=== PATIENT | male | born 1940 | race Caucasian/White ===

== ENCOUNTER 2018-05-30 08:31 | Emergency (ER) | payer OTHER, MEDICARE ==
[2018-05-30 09:21] LABS: ABSOLUTE LYMPHOCYTES (AUTO) 0.7 10^3/uL (0.5-4.7); ABSOLUTE MONOCYTES (AUTO) 0.7 10^3/uL (0.1-1.4); BASOPHILS % (AUTO) 0.3 % (0-2); EOSINOPHILS % (AUTO) 0.2 % (0-6); HEMATOCRIT 49.2 % (37.9-51.0); HEMOGLOBIN 16.7 g/dL (13.5-17.0); LYMPHOCYTES % (AUTO) 5.4 % (13-45); MEAN CORPUSCULAR HEMOGLOBIN 30.4 pg (27.0-33.4); MEAN CORPUSCULAR HGB CONC 33.9 g/dL (32.0-36.0); MEAN CORPUSCULAR VOLUME 90 fl (80-97); MONOCYTES % (AUTO) 5.4 % (3-13); PLATELET COUNT 158 10^3/uL (150-450); RED BLOOD COUNT 5.49 10^6/uL (4.35-5.55); RED CELL DISTRIBUTION WIDTH 14.3 % (11.5-14.0); SEGMENTED NEUTROPHILS % (AUTO) 88.7 % (42-78); TOTAL CELLS COUNTED % (AUTO) 100 %; WHITE BLOOD COUNT 12.4 10^3/uL (4.0-10.5)
--- NOTE | 2018-05-30 09:21 | ER Document Report ---
ED GI/ - General Chief Complaint: Flank Pain Stated Complaint: BACK PAIN Time Seen by Provider: 05/30/18 09:07 Mode of Arrival: Ambulatory Information source: Patient, Relative, COUNTS INCLUDE 234 BEDS AT THE [facility] Records Notes: This 77-year-old male patient comes emergency room complaining of right flank pain and right abdominal pain that started on Monday afternoon 05/27/2018. Reports this morning after drinking some coffee and suddenly got much worse. He has been constipated without having a bowel movement in the past 5 days. He finally took something to help move his bowels last night but he does not know what it was that he took. It was a clear liquid in a white bottle. He also has been taking Goody's powders for the discomfort and then decided that was too risky due to his GI bleeding history so he switched to Tylenol yesterday. There is no fever. Patient reports that when the pain got severe this morning after drinking coffee, he developed nausea that has persisted. He did gag some at home, and t hen vomited in route to the hospital. He reports that he did start taking his iron tablets again recently. A few days ago when he woke up and had a very small amount of hard stool, he stopped taking the iron, but did not start taking any sort of laxatives. In reviewing the patient's medications, I found that he no longer takes high blood pressure medication because it caused his blood pressure to be too low. He had been on metoprolol 2 pills that was reduced to 1 pill, then reduce to 1/2 pill, then totally eliminated. He also does not take medicine for elevated cholesterol and I am not sure why that is. His past history is significant for three-vessel bypass about 10 years ago. TRAVEL OUTSIDE OF THE [place] IN LAST 30 DAYS: No - Related Data Allergies/Adverse Reactions: niacin Allergy (Verified 05/30/18 08:33) Past Medical History - General Information source: Patient, Relative, COUNTS INCLUDE 234 BEDS AT THE [facility] Records - Social History Smoking Status: Former Smoker Cigarette use (# per day): No Chew tobacco use (# tins/day): No Smoking Education Provided: No Frequency of alcohol use: None Drug Abuse: None Occupation: Retired Lives with: Spouse/Significant other Family History: Reviewed & Not Pertinent Patient has suicidal ideation: No Patient has homicidal ideation: No - Past Medical History Cardiac Medical History: Reports: Hx Atrial Fibrillation - Paroxysmal, Hx Hypercholesterolemia, Hx Hypertension Pulmonary Medical History: Reports: Hx COPD Renal/ Medical History: Reports: Hx Kidney Stones Past Surgical History: Reports: Hx Coronary Artery Bypass Graft, Other - Kidney stone removal Review of Systems - Review of Systems Constitutional: No symptoms reported EENT: No symptoms reported Cardiovascular: No symptoms reported Respiratory: No symptoms reported Gastrointestinal: See HPI, Abdomen distended, Abdominal pain, Nausea, Vomiting, Constipation Genitourinary: No symptoms reported Musculoskeletal: No symptoms reported Skin: No symptoms reported Hematologic/Lymphatic: No symptoms reported Neurological/Psychological: No symptoms reported Physical Exam - Vital signs Vitals: Temp Pulse Resp BP Pulse Ox 97.4 F 96 26 H 192/119 H 95 05/30/18 08:46 05/30/18 08:46 05/30/18 08:46 05/30/18 08:46 05/30/18 08:46 Interpretation: Hypertensive - General General appearance: Appears well, Alert In distress: None - HEENT Head: Normocephalic, Atraumatic Eyes: Normal Pupils: PERRL - Respiratory Respiratory status: No respiratory distress Breath sounds: Other - Distant breath sounds consistent with history of COPD without rhonchi or wheezes. - Cardiovascular Rhythm: Irregularly irregular Heart sounds: Normal auscultation Murmur: No - Abdominal Distension: Distended, Tympanitic, Other - Tympanitic across the upper abdomen, fluid type sounds on percussion in the lower abdomen Bowel sounds: Hypoactive Tenderness: Tender - There is some tenderness in the right lateral lower abdomen and more so in the right upper quadrant. - Back Back: Normal. No: CVA tenderness - Extremities General upper extremity: Normal inspection General lower extremity: Normal inspection - Neurological Neuro grossly intact: Yes - Psychological Associated symptoms: Normal affect, Normal mood - Skin Skin Temperature: Warm Skin Moisture: Dry Skin Color: Normal Course - Re-evaluation Re-evalutation: 05/30/18 16:10 This is a late note about this patient - Vital Signs Vital signs: Temp Pulse Resp BP Pulse Ox 97.4 F 74 16 162/107 H 99 05/30/18 08:46 05/30/18 13:51 05/30/18 13:51 05/30/18 13:51 05/30/18 13:51 - Laboratory Result Diagrams: 05/30/18 09:02 05/30/18 09:02 Laboratory results interpreted by me: 04/03/19 04/03/19 04/03/19 09:02 09:02 10:25 WBC 12.4 H RDW 14.3 H Seg Neutrophils % 88.7 H Lymphocytes % 5.4 L Absolute Neutrophils 11.0 H Chloride 108 H BUN 24 H Creatinine 2.67 H Est GFR ( Amer) 28 L Est GFR (Non-Af Amer) 23 L Glucose 113 H ALT 16 L Urine Protein 30 H Urine Blood LARGE H - Diagnostic Test Radiology reviewed: Image reviewed, Reports reviewed - Acute abdominal series shows a sending colon constipation with no other gross abnormality. Contrasted CT scan of the abdomen and pelvis shows moderate fecal load in the ascending colon with nonobstructing punctate renal stones in each kidney. - EKG Interpretation by Me EKG shows normal: Sinus rhythm, [place]. abnormal: Intervals - [place] prolonged QT interval, QRS Complexes - Borderline inferior Q waves, ST-T Waves - Borderline inferior T abnormalities Rate: Tachycardia - 101 Rhythm: Arrthymia Discharge - Discharge Clinical Impression: Abdominal pain Qualifiers: Abdominal location: unspecified location Qualified Code(s): R10.9 - Unspecified abdominal pain Constipation Qualifiers: Constipation type: unspecified constipation type Qualified Code(s): K59.00 - Constipation, unspecified High blood pressure Qualifiers: Hypertension type: essential hypertension Qualified Code(s): I10 - Essential (primary) hypertension Condition: Stable Disposition: HOME, SELF-CARE Additional Instructions: Abdominal Pain: There are many causes of abdominal pain. Pain can mean a serious problem requiring surgery (such as appendicitis). It can also be an innocent problem that goes away on its own (such as a viral infection). Often, time must pass to determine the cause of pain. The physician does not feel that hospitalization is necessary, at present. Things may change within the next 24 hours. Call the doctor or come back for re- examination if any problems occur, such as: (1) Pain that becomes more severe, steady, or becomes concentrated in one s pecific area. Also, pain that is more severe with movement or coughing. (2) Vomiting that persists or becomes more frequent. (3) Blood in the vomitus, urine, or bowel movements. Blood in the stool may have a tarry or black appearance. (4) Shaking chills or fever greater than 100 degrees F. (5) The abdomen becomes more distended or swollen. (6) Bowel movements cease. (7) Failure to improve as expected. Constipation: Constipation is a common problem. It is especially likely as you get older. Constipation is a common cause of abdominal pain, but sometimes causes no symptoms at all. Causes of constipation include certain medications, dehydration, diets, inactivity, and low-fiber intake. Rarely, it can be a symptom of underlying disease. The physician has evaluated you for this. Avoid constipation by eating a diet high in fiber, fruits, and vegetables. Drink plenty of liquids. Get regular exercise. If possible, avoid constipating medicines like narcotic pain medication. Some vitamin tablets can cause constipation. Stool softeners may be needed for difficult cases. An excellent stool softener is Konsyl which is available at [employer]. Just add a teaspoon to a glass of pineapple or orange juice daily or twice a day if needed. Laxatives are useful for occasional constipation. You should use them only when necessary. Too-frequent use can make your bowels dependent on them. Some over the counter laxatives available without prescription are: Milk of Magnesia, 1-2 tablespoons twice a day Dulcolax, 5 mg pill or 10 mg suppository. Citrate of Magnesia, 4-5 ounces a day for a day or two For acute constipation, Fleet's Enemas and Dulcolax suppositories are helpful. Chronic, terminal superintendent use of laxatives or enemas is not a good idea. Your bowel may become dependant on them. You do not need to have a bowel movement every day. Many people do fine with a bowel movement every three or four days. You should call your doctor or return for re-evaluation if you pass blood in the stool, or if you develop fever or increasing abdominal pain. High Blood Pressure: When your blood pressure was taken today it was elevated. Today's reading was 156/119. Pre-hypertension/Hypertension: The patient has been informed that they may have pre-hypertension or Hypertension based on a blood pressure reading in the emergency department. I recommend that the patient call the primary care provider listed on their discharge instructions or a physician of their choice this wee to arrange follow up for further evaluation of possible pre- hypertension or Hypertension. Sometimes, stress or illness causes a temporary elevation of your blood pressure. We suggest that you get your blood pressure measured three more times during the next few days to see if this is more than a temporary abnormality. If your blood pressure is greater than 150/90 on each occasion, you must have treatment. Some simple things you can do to help are: If you have blood pressure medicine but aren't using it regularly, start taking it again. Get some aerobic exercise for at least 20 minutes on a daily basis. (See your doctor before beginning a new exercise program.) Eat a low-fat diet. Lose excess weight. Avoid salty foods and avoid adding salt to any of the foods you eat. Avoid diet pills, decongestants, "energizing" herbs, and other medicines that elevate blood pressure. If left untreated, hypertension greatly enhances your risk for developing heart disease and strokes. Please don't ignore this problem. Take MiraLAX every day. Drink plenty of fluids in the evening. Drink some citrate of magnesia twice daily until your bowels start to move. Take Tylenol for pain if needed. Narcotic pain medication will worsen your constipation. Check your blood pressure twice daily and record the findings over the next few days. All up with your doctor if your bowels do not start moving over the next few days, or if your blood pressure does not come back down to normal. RETURN TO THE EMERGENCY ROOM IF ANY NEW OR WORSENING SYMPTOMS.
[2018-05-30 09:42] LABS: BLOOD UREA NITROGEN 24 mg/dL (7-20); CALCIUM 10.1 mg/dL (8.4-10.2); GLUCOSE 113 mg/dL (75-110)
[2018-05-30 09:43] LABS: ALANINE AMINOTRANSFERASE 16 U/L (21-72); ALBUMIN 4.6 g/dL (3.5-5.0); ALKALINE PHOSPHATASE 81 U/L (38-126); ANION GAP 9 (5-19); ASPARTATE AMINO TRANSFERASE 19 U/L (17-59); BILIRUBIN,DIRECT 0.4 mg/dL (0.0-0.4); BILIRUBIN,TOTAL 1.1 mg/dL (0.2-1.3); CARBON DIOXIDE 24 mmol/L (22-30); CHLORIDE 108 mmol/L (98-107); POTASSIUM 4.1 mmol/L (3.6-5.0); SODIUM 140.7 mmol/L (137-145); TOTAL PROTEIN 7.9 g/dL (6.3-8.2)
[2018-05-30] MEDS ORDERED: NORMAL SALINE 1000 ML 1,000 ML IV ONE (10:08)
--- NOTE | 2018-05-30 10:15 | RADIOLOGY REPORT (SQ) ---
EXAM DESCRIPTION: ACUTE ABDOMEN SERIES COMPLETED DATE/TIME: 05/30/2018 9:39 am REASON FOR STUDY: RLQ/RUQ pain. Constipation X 4 days COMPARISON: None. NUMBER OF VIEWS: Three views. TECHNIQUE: Frontal chest, supine abdomen and upright/decubitus abdomen radiographic images acquired. LIMITATIONS: None. FINDINGS: CHEST: No evidence of focal consolidation, pleural effusion or pneumothorax. Evidence of prior CABG. FREE AIR: None. No abnormal gas collections. BOWEL GAS PATTERN: Gas and stool throughout the colon. No evidence of intestinal obstruction. CALCIFICATIONS: No radiopaque calculi overlie kidneys or expected course of ureters. Scattered pelvi c phleboliths. Vascular calcifications pre HARDWARE: CABG hardware. None in the abdomen. SOFT TISSUES: No gross mass or suggestion of organomegaly. BONES: No acute fracture. No worrisome bone lesions. OTHER: No other significant finding. IMPRESSION: No evidence of acute intrathoracic process. No evidence of intestinal obstruction. Formed stool throughout the ascending colon. TECHNICAL DOCUMENTATION: JOB ID: [id number] [employer]- All Rights Reserved Reading location - IP/workstation name: [email or web address]
[2018-05-30] MEDS ORDERED: ONDANSETRON HCL INJ/PF 4 MG/2 ML SDV IV ONE (10:45)
[2018-05-30] MEDS ORDERED: MORPHINE SULFATE 10 MG/ML INJ IV ONE (10:45)
[2018-05-30 10:54] LABS: APPEARANCE,URINE CLOUDY; BILIRUBIN,URINE NEGATIVE (NEGATIVE); COLOR,URINE YELLOW; GLUCOSE, URINE NEGATIVE (NEGATIVE); KETONES,URINE NEGATIVE (NEGATIVE); LEUKOCYTE ESTERASE,URINE NEGATIVE (NEGATIVE); NITRITE,URINE NEGATIVE (NEGATIVE); PROTEIN,URINE 30 mg/dL (NEGATIVE); UROBILINOGEN,URINE NEGATIVE mg/dL (<2.0)
--- NOTE | 2018-05-30 11:48 | EKG REPORT ---
SEVERITY:- ABNORMAL ECG - FAST SINUS ARRHYTHMIA, RATE 81-119 BORDERLINE INFERIOR Q WAVES BORDERLINE T ABNORMALITIES, INFERIOR LEADS BORDERLINE PROLONGED QT INTERVAL : Confirmed by: Ankit Torres MD 30-May-2018 11:48:12
--- NOTE | 2018-05-30 12:24 | RADIOLOGY REPORT (SQ) ---
EXAM DESCRIPTION: CT ABD/PELVIS NO ORAL OR IV COMPLETED DATE/TIME: 05/30/2018 12:08 pm REASON FOR STUDY: Right-sided abdomen and flank pain with hematuria COMPARISON: None. TECHNIQUE: CT scan of the abdomen and pelvis performed without intravenous or oral contrast. Images reviewed with lung, soft tissue, and bone windows. Reconstructed coronal and sagittal MPR images revi ewed. All images stored on PACS. All CT scanners at this facility use dose modulation, iterative reconstruction, and/or weight based d osing when appropriate to reduce radiation dose to as low as reasonably achievable (ALARA). [facility]: Dose Right [facility]: CareDose [facility]: Dose Right [facility]: Teradose 4D [facility]: Smart Convergent Radiotherapy RADIATION DOSE: CT Rad equipment meets quality standard of care and radiation dose reduction techniq ues were employed. CTDIvol: 5.7 mGy. DLP: 301 mGy-cm.mGy. LIMITATIONS: None. FINDINGS: LOWER CHEST: No significant findings. No nodules or infiltrates. NON-CONTRASTED LIVER, SPLEEN, ADRENALS: Evaluation limited by lack of IV contrast. No identified sign ificant masses. PANCREAS: No masses. No peripancreatic inflammatory changes. GALLBLADDER: No identified stones by CT criteria. No inflammatory changes to suggest cholecystitis. RIGHT KIDNEY AND URETER: No suspicious masses. Assessment limited by lack of IV contrast. Punctate nonobstructing upper pole stone. No hydronephrosis or hydroureter. Nonspecific perinephric strandi ng. LEFT KIDNEY AND URETER: No suspicious masses. Assessment limited by lack of IV contrast. Punctate c alcific density within the left distal ureter just proximal to the ureteral vesicular junction. No hydronephrosis or hydroureter. Nonspecific perinephric stranding, mildly more evident than on the ri ght. AORTA AND RETROPERITONEUM: Aortoiliac atherosclerosis. BOWEL AND PERITONEAL CAVITY: Extensive colonic diverticula. No focal bowel wall thickening. No evid ence of intestinal obstruction. Moderate fecal burden throughout the ascending colon. APPENDIX: Normal. PELVIS, BLADDER, AND ABDOMINAL WALL:No abnormal masses. No free fluid. Bladder normal. Prostate calc ifications. BONES: No acute bony abnormality. No suspicious osseous lesions. OTHER: No other significant finding. IMPRESSION: 1. Likely nonobstructing punctate distal left ureteral stone. No hydronephrosis. Mild nonspecific perinephric stranding, left greater than right. 2. Nonobstructing punctate right renal stone. 3. Moderate fecal burden throughout the ascending colon. COMMENT: Quality ID # [id number]: Final reports with documentation of one or more dose reduction techniques (e.g., Automated exposure control, adjustment of the mA and/or kV according to patient size, use of iterative reconstruction technique) TECHNICAL DOCUMENTATION: JOB ID: [id number] [employer]- All Rights Reserved Reading location - IP/workstation name: [email or web address]
[2018-05-30] MEDS ORDERED: MAGNESIUM CITRATE 296 ML BOTTLE PO ONE (13:19)
[2018-05-30 13:51] VITALS: BP 162/107
== END 2018-05-30 13:59 | disposition home or self-care (01) ==
LOC: ER 08:31
DX: K59.00 Constipation, unspecified (principal); R11.2 Nausea with vomiting, unspecified; I10 Essential (primary) hypertension; R00.0 Tachycardia, unspecified; J44.9 Chronic obstructive pulmonary disease, unspecified; Z87.891 Personal history of nicotine dependence; Z95.1 Presence of aortocoronary bypass graft; Z87.442 Personal history of urinary calculi
CPT/HCPCS: 93005; 99284; 96361; 96374; 96375; 36415; 87086; 85025; 80053; 81001; 74022; 74176; 93010; J3490; J2270; J2405; J7030